=== PATIENT | male | born 1960 | race Asian ===

== ENCOUNTER 2016-05-26 13:01 | Emergency (ER) | payer BC ==
[2016-05-26] MEDS ORDERED: NS 1,000 ML IV ONE (13:48)
[2016-05-26 14:09] LABS: % IMMATURE GRANULYOCYTES 0.4 % (0.0-1.1); ABSOLUTE IMMATURE GRANULOCYTES 0.03 10^3/uL (0.00-0.10); ADD DIFF? NO; ADD MORPH? NO; ADD SCAN? NO; ATYPICAL LYMPHOCYTE FLAG 10 (0-99); FRAGMENT RBC FLAG 0 (0-99); HEMATOCRIT 39.9 % (40.0-51.0); HEMOGLOBIN 14.4 g/dL (13.7-17.5); LEFT SHIFT FLG 0 (0-99); LIPEMIA HEMOLYSIS FLAG 90 (0-99); MEAN CELL HEMOGLOBIN 30.7 pg (27.9-34.1); MEAN CELL HEMOGLOBIN CONCENTR. 36.1 g/dL (32.4-36.7); MEAN CELL VOLUME 85.1 fL (81.5-99.8); MEAN PLATELET VOLUME 8.9 fL (8.7-11.7); PLATELET CLUMPS FLAG 40 (0-99); PLATELET COUNT 254 10^3/uL (150-400); RED BLOOD CELL COUNT 4.69 10^6/uL (4.40-6.38); RED CELL DISTRIBUTION WIDTH 12.7 % (11.5-15.2)
[2016-05-26] MEDS ORDERED: OSELTAMIVIR PHOSPHATE 75 MG CAP PO ONE ×2 (14:09→14:16)
[2016-05-26] MEDS ORDERED: ACETAMINOPHEN 325 MG TAB PO ONE (14:16)
--- NOTE | 2016-05-26 14:24 | EDPHY ---
H & P Time Seen by Provider: 05/26/16 13:46 HPI/ROS: HPI Cough, fever, body aches. 55-year-old male by private vehicle with his . This patient reports he has a history of a pancreatic tumor. He states that it is not pancreatic cancer but he states that he is to have surgery to have it removed this Thursday. He reports yesterday he started feeling chilled with body aches. He developed fever and cough which she describes as dry/nonproductive last night. The symptoms have now continued through today. He was vaccinated for influenza. ROS: Constitutional: As above Eyes: No discharge. No changes in vision. ENT: He has had a mild sore throat. No nasal congestion or rhinorrhea. Respiratory: As above. No shortness of breath. Cardiac: No chest pain, no palpitations. Gastrointestinal: No abdominal pain, no vomiting, no diarrhea. Genitourinary: No hematuria. No dysuria or increased frequency with urination. Musculoskeletal: No back pain. No neck pain. As above. Skin: No rashes. Neurological: No headache. No focal weakness or altered sensation. Past medical history: As above. Social history: Nonsmoker. Here with his . Physical Exam: General Appearance: Alert, no distress. Moderately obese. This patient is responding to questions appropriately and in full sentences. This patient appears well-hydrated and well-nourished. Eyes: Pupils equal and round no pallor or injection. No lid edema, erythema or injection. ENT, Mouth: Mucous membranes are moist. The pharyngeal tissues are unremarkable. No edema or swelling. No asymmetry suggestive of abscess. Mild pharyngeal erythema. No exudates. Respiratory: There are no retractions, lungs are clear to auscultation with good air movement bilaterally. Cardiovascular: Regular rate and rhythm. Borderline tachycardia. No murmur. Gastrointestinal: Abdomen is soft and nontender, no masses, bowel sounds normal. No focal tenderness at McBurney's point. No Boyd sign. Neurological: Motor sensory function is grossly intact. Cranial nerves are normal. Gait is normal. Skin: Warm and dry, no rashes. Musculoskeletal: Neck is supple and nontender. Extremities are symmetrical. All joints range without pain or impingement. Psychiatric: No agitation. No depression. Database: Rapid influenza-positive influenza a. EKG: Imaging: Chest x-ray PA and lateral; the cardiac mediastinal silhouette is unremarkable. No evidence of infiltrate or pneumothorax. Viral pneumonitis versus bronchitis and basilar atelectasis. No other acute cardiopulmonary disease process noted. Interpreted by me. Procedures: Emergency department course: IV placed. He was placed on a cardiac surgeon. He was started on IV normal saline with 1 L to be given over the next hour. He was given 1 g of oral Tylenol. After diagnosis of influenza a. He was given 75 mg of oral Tamiflu. 2:50 p.m., patient re-evaluated. Blood pressure is 139/67. classroom monitor shows a narrow complex sinus rhythm with ventricular rate of 87. Pulse oximetry is 97%. Patient's 1st venous lactate was 1.6. He has responded well to IV fluids and antipyretics. Although he met SIRS criteria initially I do not feel he is septic. 2:55 p.m. discussed admission with the patient. He states that he is feeling better and declines at this time. He does feel comfortable going home with his . I feel this is reasonable. They live near the hospital and can easily return to Urgent Care or the emergency department at [facility]. Return to emergency department/urgent care precautions were thoroughly reviewed with him. Follow-up was discussed. All of his questions were answered. He was discharged from the emergency department in good condition. Differential Diagnosis: The differential diagnosis on this patient includes but is not limited to influenza. Bacterial pneumonia, other serious bacterial infection unlikely. This represents a partial list of diagnoses considered. These considerations are based on history, physical exam, past history, reassessment and diagnostic testing. Smoking Status: Never smoked Constitutional: Initial Vital Signs Temperature (C) 39.4 C H 05/26/16 13:31 Heart Rate 100 05/26/16 13:31 Respiratory Rate 24 H 05/26/16 13:31 Blood Pressure 153/81 H 05/26/16 13:31 O2 Sat (%) 88 L 05/26/16 13:31 O2 Delivery Mode Room Air Allergies/Adverse Reactions: No Known Allergies Allergy (Unverified 05/26/16 13:37) Home Medications: Medication Instructions Recorded Atorvastatin Calcium 05/26/16 Januvia 100 MG (*) 05/26/16 Losartan-Hctz 100-25 mg Tab 05/26/16 Metformin HCl 05/26/16 Metoprolol Succinate Xr 05/26/16 Oseltamivir Phosphate [Tamiflu 75 75 mg PO BID #10 cap 05/26/16 mg (RX)] Medical Decision Making - Data Points Laboratory Results: Laboratory Results 05/26/16 13:58 05/26/16 13:58 Medications Given: Discontinued Medications Acetaminophen (Tylenol) 1,000 mg PO EDNOW ONE Stop: 05/26/16 14:17 Last Admin: 05/26/16 14:21 Dose: 1,000 mg Sodium Chloride (Ns) 1,000 mls @ 0 mls/hr IV ONCE ONE PRN Reason: Wide Open Stop: 05/26/16 13:49 Last Admin: 05/26/16 14:07 Dose: 1,000 mls Oseltamivir Phosphate (Tamiflu) 75 mg PO EDNOW ONE Stop: 05/26/16 14:10 Last Admin: 05/26/16 14:18 Dose: Not Given Oseltamivir Phosphate (Tamiflu) 75 mg PO EDNOW ONE Stop: 05/26/16 14:17 Last Admin: 05/26/16 14:21 Dose: 75 mg Departure - Departure Disposition: Home, Routine, Self-Care Clinical Impression: Influenza A, Dehydration Condition: Good Instructions: Influenza (ED) Additional Instructions: Read and follow provided instructions. Follow-up with your primary care physician tomorrow without fail for re- evaluation. It is very important you keep yourself well hydrated. Drink plenty of fluids. The best fluid to drink is Gatorade mixed with water in a 1-1 dilution. Take medication as prescribed through entire course of treatment. This is Tamiflu. It is an antiviral to treat your influenza. Treat fever with Tylenol. You can take 650 mg to 1 g every 6-8 hours for the next 2 days. Return to the emergency department for worsening cough, difficulty breathing, high fever, vomiting or other serious concerns. Referrals: OUT OF STATE,. [Primary Care Provider] - As per Instructions Prescriptions: Oseltamivir Phosphate [Tamiflu 75 mg (RX)] 75 mg PO BID #10 cap
[2016-05-26 14:25] LABS: APTT 28.9 SEC (23.0-38.0); INR 0.96 (0.83-1.16); PROTIME(PATIENT) 12.6 SEC (12.0-15.0)
[2016-05-26 14:26] LABS: ALANINE AMINOTRANSFERASE 39 IU/L (21-72); ALBUMIN 3.6 g/dL (3.5-5.0); ALKALINE PHOSPHATASE 60 IU/L (38-126); ANION GAP 12 mEq/L (8-16); ASPARTATE AMINOTRANSFERASE 22 IU/L (17-59); BILIRUBIN,TOTAL 0.6 mg/dL (0.1-1.4); BILIRUBIN-CONJUGATED 0.3 mg/dL (0.0-0.5); BILIRUBIN-UNCONJUGATED 0.3 mg/dL (0.0-1.1); CALCIUM 9.4 mg/dL (8.5-10.4); CARBON DIOXIDE 26 mEq/l (22-31); CHLORIDE 98 mEq/L (97-110); CREATININE 0.6 mg/dL (0.7-1.3); GLOMERULAR FILTRATION RATE > 60; GLUCOSE 149 mg/dL (70-100); POTASSIUM 3.2 mEq/L (3.5-5.2); SODIUM 136 mEq/L (134-144)
--- NOTE | 2016-05-26 14:38 | DX ---
PA and Lateral Chest Indication: Flulike symptoms. Patient meets sepsis criteria. Comparison: None Findings: The lungs are hypoventilated with bibasilar patchy opacities superimposed on diffuse peribr onchial thickening. No confluent airspace consolidation or effusion. Heart size within normal limit f or degree of inspiration. Benign diffuse idiopathic skeletal hyperostosis is present throughout the t horacic spine. An old mild compression deformity is present in the low thoracic spine. Impression: 1. Viral pneumonitis versus bronchitis with bibasilar atelectasis. 2. No pneumonia or effusion.
[2016-05-26 15:39] VITALS: BP 125/62; PULSE 78; RESP 18; TEMP 100; O2SAT 93
== END 2016-05-26 15:39 | disposition home or self-care (01) ==
LOC: CED 13:01
DX: J09.X2 Influenza due to identified novel influenza A virus with other respiratory manifestations (principal); Z85.07 Personal history of malignant neoplasm of pancreas
CPT/HCPCS: 71020-PO; 80048-PO; 80076-PO; 82247-PO; 83605-PO; 83690-PO; 85025-PO; 85610-PO; 85730-PO; 87400-PO; 96360-PO; G0463-PO

== ENCOUNTER → 2016-09-09 | Outpatient (CLI) | payer BC | LOC: CIMAGING 16:30 | PROVIDERS: ATTEND Internal Medicine | DX: R07.81 Pleurodynia (principal) | CPT/HCPCS: 71101-PO ==

== ENCOUNTER 2016-10-21 10:06 | Observation (INO) | payer BC ==
[2016-10-21] MEDS ORDERED: ASPIRIN 81 MG CHEWABLE TAB PO ONE (10:12)
--- NOTE | 2016-10-21 10:12 | CPEKG ---
Heart Rate: 50 RR Interval: 1200 P-R Interval: 160 QRSD Interval: 100 QT Interval: 424 QTC Interval: 387 P [place]: -6 QRS [place]: -14 T Wave [place]: 28 EKG Severity - NORMAL ECG - EKG Impression: SINUS RHYTHM Electronically Signed By: Harshad Quintero 21-Oct-2016 14:29:25
--- NOTE | 2016-10-21 10:25 | EDPHY ---
H & P Stated Complaint: c/o substernal CP ~ 40 min ago- pain now 2/10 Time Seen by Provider: 10/21/16 10:09 HPI/ROS: Chief Complaint: Chest pain HPI: 55-year-old male with a history of hypertension, diabetes, hyperlipidemia and pancreatic cancer status post a Whipple procedure in May [facility] [address] [facility]. Patient was in a meeting at work this morning when at 9: 30 a.m. he began having substernal chest pain, felt like reflux type pain. It radiated to his back. It was at worst a 6/10. Patient presented to his physician's office up stairs for evaluation they directed him down here to the emergency department. Pain is now down to a 1/10. Does not have a history of the same pain in the past. Is unlike his pancreatic or postoperative pain. Patient does state that he recently had some blood work done and was noted to have an abnormality is his liver function tests and is scheduled for CT scan of his abdomen and pelvis tomorrow. No fevers or chills. Did not have any associated shortness of breath. Pain is not pleuritic. States that he did break out into a sweat when the pain began. Some nausea, no vomiting. ROS: 10 point Review of Systems is negative except as noted in the HPI. PMH: Pancreatic cancer status post Whipple procedure May 2016 Hypertension Hyperlipidemia Diabetes Social History: No smoking, no alcohol, no recreational drug use Family History: non-contributory Physical Exam: Gen: Awake, Alert, No Distress HEENT: Nose: no rhinorrhea Eyes: PERRLA, EOMI Mouth: Moist mucosa Neck: Supple, no JVD Chest: nontender, lungs clear to auscultation Heart: S1, S2 normal, no murmur Abd: Soft, non-tender, no guarding Back: no CVA tenderness, no midline tenderness Ext: no edema, non-tender Skin: no rash Neuro: CN II-XII intact, Sensation grossly intact, Strength 5/5 in bilateral upper and lower extremities - Medical/Surgical History Other PMH: PCP devi. SURG sinus. Pancreatic tumor - Social History Smoking Status: Never smoked Constitutional: Initial Vital Signs Temperature (C) 37.2 C 10/21/16 10:15 Heart Rate 52 L 10/21/16 10:15 Respiratory Rate 18 10/21/16 10:15 Blood Pressure 124/74 H 10/21/16 10:15 O2 Sat (%) 98 10/21/16 10:15 O2 Delivery Mode Room Air Allergies/Adverse Reactions: No Known Allergies Allergy (Unverified 05/26/16 13:37) Home Medications: Medication Instructions Recorded Atorvastatin Calcium 05/26/16 Januvia 100 MG (*) 05/26/16 Losartan-Hctz 100-25 mg Tab 05/26/16 Metformin HCl 05/26/16 Metoprolol Succinate Xr 05/26/16 Medical Decision Making - Diagnostics EKG Interpretation: ECG time 10:10 a.m., sinus rhythm with a rate of 50, normal axis, normal intervals, no acute ST or T-wave changes. Impression: Normal ECG. ED Course/Re-evaluation: 55-year-old male with multiple risk factors for coronary disease and recent surgery for pancreatic cyst cancer presenting with substernal chest pressure radiating to his back which began about 45 minutes prior to arrival here. On arrival his pain is nearly gone. He has a normal ECG. He recently had laboratory testing showed abnormalities liver function testing. He is scheduled for a CT scan tomorrow. Will check blood work including D-dimer now. Continue to monitor his pain. He has been given 4 baby aspirin orally. 1100 patient's ECG, chest x-ray, troponin, and D-dimer normal. Interestingly also are his LFTs. Patient is will need an admission for cardiac rule out given his multiple risk factors. I have spoken with Sherri Orozco, hospitalist. Patient will be transferred to [facility] under Dr. Lundberg. - Data Points Laboratory Results: Laboratory Results 10/21/16 10:18 10/21/16 10:18 10/21/16 10/21/16 10/21/16 10:18 10:18 10:18 WBC 10.18 10^3/uL H 10^3/uL (3.80-9.50) RBC 4.54 10^6/uL 10^6/uL (4.40-6.38) Hgb 12.9 g/dL L g/dL (13.7-17.5) Hct 39.1 % L % (40.0-51.0) MCV 86.1 fL fL (81.5-99.8) MCH 28.4 pg pg (27.9-34.1) MCHC 33.0 g/dL g/dL (32.4-36.7) RDW 13.6 % % (11.5-15.2) Plt Count 276 10^3/uL 10^3/uL (150-400) MPV 8.9 fL fL (8.7-11.7) Neut % (Auto) 57.9 % % (39.3-74.2) Lymph % (Auto) 32.1 % % (15.0-45.0) [place] % (Auto) 7.9 % % (4.5-13.0) Eos % (Auto) 1.2 % % (0.6-7.6) Baso % (Auto) 0.6 % % (0.3-1.7) Nucleat RBC Rel Count 0.0 % % (0.0-0.2) Absolute Neuts (auto) 5.90 10^3/uL 10^3/uL (1.70-6.50) Absolute Lymphs (auto) 3.27 10^3/uL H 10^3/uL (1.00-3.00) Absolute Monos (auto) 0.80 10^3/uL 10^3/uL (0.30-0.80) Absolute Eos (auto) 0.12 10^3/uL 10^3/uL (0.03-0.40) Absolute Basos (auto) 0.06 10^3/uL 10^3/uL (0.02-0.10) Absolute Nucleated RBC 0.00 10^3/uL 10^3/uL (0-0.01) Immature Gran % 0.3 % % (0.0-1.1) Immature Gran # 0.03 10^3/uL 10^3/uL (0.00-0.10) D-Dimer 0.37 ug/mLFEU ug/mLFEU (0.00-0.50) Sodium 136 mEq/L mEq/L (134-144) Potassium 4.1 mEq/L mEq/L (3.5-5.2) Chloride 97 mEq/L mEq/L (97-110) Carbon Dioxide 27 mEq/l mEq/l (22-31) Anion Gap 12 mEq/L mEq/L (8-16) BUN 10 mg/dL mg/dL (7-23) Creatinine 0.7 mg/dL mg/dL (0.7-1.3) Estimated GFR > 60 Glucose 93 mg/dL mg/dL (70-100) Calcium 9.1 mg/dL mg/dL (8.5-10.4) Total Bilirubin 0.6 mg/dL mg/dL (0.1-1.4) Conjugated Bilirubin 0.3 mg/dL mg/dL (0.0-0.5) Unconjugated Bilirubin 0.3 mg/dL mg/dL (0.0-1.1) AST 54 IU/L IU/L (17-59) ALT 49 IU/L IU/L (21-72) Alkaline Phosphatase 72 IU/L IU/L (38-126) Troponin I < 0.012 ng/mL ng/mL (0-0.034) Total Protein 7.5 g/dL g/dL (6.3-8.2) Albumin 3.9 g/dL g/dL (3.5-5.0) Lipase 108.0 IU/L IU/L (23-300) Medications Given: Discontinued Medications Aspirin (Aspirin) 324 mg PO EDNOW ONE Stop: 10/21/16 10:13 Last Admin: 10/21/16 10:13 Dose: 324 mg Departure - Departure Disposition: [facility] Inpatient Acute Clinical Impression: Chest pain Condition: Fair Referrals: Aziza Hunter MD [Primary Care Provider] - As per Instructions
[2016-10-21 10:31] LABS: % IMMATURE GRANULYOCYTES 0.3 % (0.0-1.1); ABSOLUTE IMMATURE GRANULOCYTES 0.03 10^3/uL (0.00-0.10); ADD DIFF? NO; ADD MORPH? NO; ADD SCAN? NO; ATYPICAL LYMPHOCYTE FLAG 20 (0-99); FRAGMENT RBC FLAG 0 (0-99); HEMATOCRIT 39.1 % (40.0-51.0); HEMOGLOBIN 12.9 g/dL (13.7-17.5); LEFT SHIFT FLG 0 (0-99); LIPEMIA HEMOLYSIS FLAG 80 (0-99); MEAN CELL HEMOGLOBIN 28.4 pg (27.9-34.1); MEAN CELL VOLUME 86.1 fL (81.5-99.8); MEAN PLATELET VOLUME 8.9 fL (8.7-11.7); PLATELET CLUMPS FLAG 10 (0-99); PLATELET COUNT 276 10^3/uL (150-400); RED BLOOD CELL COUNT 4.54 10^6/uL (4.40-6.38); RED CELL DISTRIBUTION WIDTH 13.6 % (11.5-15.2)
[2016-10-21 10:47] LABS: ALANINE AMINOTRANSFERASE 49 IU/L (21-72); ALBUMIN 3.9 g/dL (3.5-5.0); ALKALINE PHOSPHATASE 72 IU/L (38-126); ANION GAP 12 mEq/L (8-16); ASPARTATE AMINOTRANSFERASE 54 IU/L (17-59); BILIRUBIN,TOTAL 0.6 mg/dL (0.1-1.4); BILIRUBIN-CONJUGATED 0.3 mg/dL (0.0-0.5); BILIRUBIN-UNCONJUGATED 0.3 mg/dL (0.0-1.1); CALCIUM 9.1 mg/dL (8.5-10.4); CARBON DIOXIDE 27 mEq/l (22-31); CHLORIDE 97 mEq/L (97-110); CREATININE 0.7 mg/dL (0.7-1.3); GLOMERULAR FILTRATION RATE > 60; GLUCOSE 93 mg/dL (70-100); POTASSIUM 4.1 mEq/L (3.5-5.2); SODIUM 136 mEq/L (134-144); TOTAL PROTEIN 7.5 g/dL (6.3-8.2)
[2016-10-21] MEDS ORDERED: IOPAMIDOL (ISOVUE-300) 100 ML BTL ONE (10:52)
[2016-10-21 10:54] LABS: TROPONIN I < 0.012 ng/mL (0-0.034)
[2016-10-21 13:09] VITALS: O2SAT 93
[2016-10-21 13:50] VITALS: PULSE 55
[2016-10-21] MEDS ORDERED: PROMETHAZINE HCL 25 MG/ML INJ IVP PRN (14:10)
[2016-10-21 15:12] VITALS: BP 104/63; RESP 16; TEMP 97.8
[2016-10-21] MEDS ORDERED: ONDANSETRON 4 MG/2 ML VIAL IVP PRN (15:34)
[2016-10-21] MEDS ORDERED: ONDANSETRON DISINTEGRATING 4 MG TAB PO PRN (15:34)
[2016-10-21] MEDS ORDERED: ACETAMINOPHEN 325 MG TAB PO PRN (15:34)
[2016-10-21] MEDS ORDERED: CREON 24 CAP PO SCH (16:00)
--- NOTE | 2016-10-21 17:02 | CPR ---
[f rep st] NONINVASIVE CARDIAC PROCEDURE REPORT DATE OF PROCEDURE: 10/21/2016 PROCEDURE PERFORMED: Treadmill stress test. REASON FOR TEST: Chest pain. FINDINGS: Resting EKG shows a sinus bradycardia with a rate of 57. There are no ischemic changes. No arrhythmias. Resting blood pressure 118/78, resting heart rate 57. He is asymptomatic. STRESS PORTION: He was exercised according to the Fili protocol for a total of 6 minutes and 43 se conds. Peak MET level 7.7. Peak blood pressure 184/80. Peak heart rate 132. This was of 80% maxi mal heart rate. He had no ischemic changes. An occasional PVC was noted with exercise. RECOVERY: He spontaneously recovered. Both blood pressure and pulse returned to normal. Recovery blood pressure 130/80, recovery heart rate 86 and regular. No ischemic changes seen in recovery. N o arrhythmias seen. At this time, he currently is stable to return to his room. /[id number]/MODL
--- NOTE | 2016-10-21 19:03 | GDS ---
[f rep st] DISCHARGE SUMMARY DISCHARGE DIAGNOSES: 1. Atypical chest pain. 2. Diabetes. 3. Hypertension. 4. History of pancreatic cancer, status post Whipple. HISTORY: This 55-year-old male presented with 1 hour's worth of burning-type chest pain radiating t o the back. HOSPITAL COURSE: The patient had cardiac enzymes negative x2. He then underwent stress testing. H e underwent graded stress EKG, which did not show any abnormalities, although his heart rate was not able to get up to maximum. Considering that his pain is atypical, we will defer any further imagin g unless he gets symptoms again. He does have some calcification in the RCA on CAT scanning. He wi ll, however, be discharged home. We will add aspirin to his regimen. /[id number]/MODL
[2016-10-21] MEDS ORDERED: METOPROLOL TARTRATE 25 MG TAB PO SCH (21:00)
--- NOTE | 2016-10-21 21:53 | GHP ---
[f rep st] HISTORY AND PHYSICAL DATE OF ADMISSION: 10/21/2016 CHIEF COMPLAINT: Chest pain. HISTORY OF PRESENT ILLNESS: A 55-year-old male with a history of diabetes, hypertension, hyperlipid emia, and recent pancreatic cancer, status post Whipple. He presents with 1 hour's worth of chest p ressure, with some associated warmth. No shortness of breath. Not exertional in quality. It did r adiate into his back. He has not had pain like this before. No nausea, shortness of breath. REVIEW OF SYSTEMS: A 10-point review of systems was obtained, other than stated above is negative. PAST MEDICAL HISTORY: 1. History of pancreatic cancer, status post Whipple in May of this year. 2. Hypertension. 3. Hyperlipidemia. 4. Diabetes. MEDICATIONS: Reviewed. SOCIAL HISTORY: No smoking or alcohol. FAMILY HISTORY: No history of coronary disease. PHYSICAL EXAM: VITAL SIGNS: Afebrile. Blood pressure is 104/63, heart rate 55, oxygen saturation 93% on room air. GENERAL: The patient is well developed in no apparent distress. HEENT: Nonicter ic sclerae. Extraocular movements intact. Moist mucous membranes. NECK: Supple. No thyromegaly. LUNGS: Good effort. Clear to auscultation bilaterally. CARDIOVASCULAR: Regular rate and rhythm . No murmurs, rubs, or gallops. ABDOMEN: Positive bowel sounds. Soft, nontender, nondistended. No hepatosplenomegaly. EXTREMITIES: No clubbing, cyanosis, or edema. SKIN: Without rash. Warm, dry, and intact. NEUROLOGIC: Alert and oriented x3. Moving all 4 extremities equally. PSYCHIATRI C: Normal affect. LABS: White blood cell count slightly elevated at 10. D-dimer is negative. Chemistry, including l iver function tests, are normal. Troponins are negative x2. CT scan of the abdomen and pelvis shows essentially status post Whipple, but also does show calcific ation in the right coronary artery. EKG, personally reviewed and interpreted, shows normal sinus rhythm, with no ischemic changes. ASSESSMENT: This is a 55-year-old male presenting with atypical type chest pain, although he does h ave significant risk factors. PLAN: Chest pain. It has resolved. It did radiate to the back, and was felt more like warmth. I suspect this probably is GERD. He has had two negative troponins. He will be going for stress test ing now. If this is negative, we will let him go home. /[id number]/MODL
[2016-10-22] MEDS ORDERED: PANTOPRAZOLE SODIUM 40 MG TAB PO SCH (09:00)
[2016-10-22] MEDS ORDERED: NON-FORMULARY NEW DRUG (Losartan/Hydrochlorothiazide [Hyzaar 100-12.5 Tablet] 1 EACH) PO SCH (09:00)
[2016-10-22] MEDS ORDERED: LOSARTAN POTASSIUM 50 MG TAB PO SCH (09:00)
[2016-10-22] MEDS ORDERED: NON-FORMULARY NEW DRUG (Esomeprazole Mag Trihydrate [Nexium] 40 MG) PO SCH (09:00)
[2016-10-22] MEDS ORDERED: ATORVASTATIN CALCIUM 20 MG TAB PO SCH (09:00)
[2016-10-22] MEDS ORDERED: HYDROCHLOROTHIAZIDE 12.5 MG CAP PO SCH (09:00)
== END 2016-10-21 16:45 | disposition home or self-care (01) ==
LOC: CED 10:06 → CEDHOLD 11:02 → F2W 13:39
PROVIDERS: ADMIT Internal Medicine; ATTEND Internal Medicine
DX: R07.9 Chest pain, unspecified (principal); E11.9 Type 2 diabetes mellitus without complications; I10 Essential (primary) hypertension; E78.5 Hyperlipidemia, unspecified; Z85.07 Personal history of malignant neoplasm of pancreas
CPT/HCPCS: 71020; 74177; 93005; 93017; G0378; 80048-PO; 80076-PO; 83690-PO; 84484-PO; 85025-PO; 85378-PO; J2550; Q9967

== ENCOUNTER 2016-11-19 08:38 | Inpatient (IN) | payer BC ==
--- NOTE | 2016-11-19 08:55 | EDPHY ---
H & P Time Seen by Provider: 11/19/16 08:53 HPI/ROS: CHIEF COMPLAINT: Abdominal pain and fever HISTORY OF PRESENT ILLNESS: History from patient as well as from his planning associate Dr. Davis called before his arrival. Patient had Whipple procedure on June 18 of this year in [place] for pancreatic mass. Postoperatively he had another stay in the hospital for issues related to the surgery. He has been having intermittent abdominal pain since then including last week on Thursday, again on Thursday, and then again yesterday. He saw his planning associate yesterday was sent into the emergency department today because of recurrent abdominal pain, fever to 101.5 yesterday and an elevated alkaline phosphatase. Patient currently has minimal abdominal pain. When he has it is epigastric and radiates lower abdomen and also up into his chest. REVIEW OF SYSTEMS: Eye: no change in vision ENT: no sore throat Cardiac: no chest pain or syncope Pulmonary: no cough or SOB Abdomen: HPI, no vomiting or diarrhea Musculoskeletal: no back pain Skin: no rash Neuro: no headache Constitutional: HPI : no urinary symptoms A comprehensive 10 point review of systems is otherwise negative aside from elements mentioned in the history of present illness. PAST MEDICAL HISTORY: As in HPI, also and admission 1 month ago for chest pain. Hypertension, diabetes. Hyperlipidemia, vertigo. Social history: Originally from [place], no alcohol General Appearance: Alert and conversant, cooperative. Eyes: No scleral icterus. ENT, Mouth: Normal mucous membranes. Respiratory: Normal respiratory effort, breath sounds equal, lungs are clear to auscultation. Cardiovascular: Regular rate and rhythm. Gastrointestinal: Abdomen is soft and non tender. Surgical incision well healed, no rebound or guarding. Neurological: Alert and oriented x3. Normally conversant. Face symmetric, normal movement and sensation in all extremities. Skin: Warm and dry, no rashes. Musculoskeletal: No peripheral edema and no joint swelling. Psychiatric: Not agitated. Emergency Department course/MDM: Per Dr. Davis his planning associate plan for admission, sepsis screening, IV antibiotics, and MRCP. Does not have SIRS criteria in the emergency department. Afebrile in emergency department, elevated white blood cell count, but not tachycardic or tachypneic. Normal saline 1 L IV, Invanz 1 g IV. Concern for the possibility of early cholangitis. Abdominal pain with elevated liver function tests and alkaline phosphatase with subjective fevers. Smoking Status: Never smoked Constitutional: Initial Vital Signs Temperature (C) 36.8 C 11/19/16 08:43 Heart Rate 59 L 11/19/16 08:43 Respiratory Rate 17 11/19/16 08:43 Blood Pressure 108/71 11/19/16 08:43 O2 Sat (%) 94 11/19/16 08:43 O2 Delivery Mode Room Air Allergies/Adverse Reactions: No Known Allergies Allergy (Verified 11/19/16 08:42) Home Medications: Medication Instructions Recorded Acetaminophen [Tylenol 325mg (*)] 1 - 3 tab PO Q6 PRN 10/21/16 Aspirin EC [Aspirin EC 81 mg (*)] 81 mg PO DAILY #1 tab 10/21/16 Atorvastatin Calcium [Lipitor 20 20 mg PO HS 10/21/16 mg (*)] Esomeprazole Mag Trihydrate 40 mg PO BID 10/21/16 [Nexium] Ibuprofen [Advil] 200 mg PO BID PRN 10/21/16 Lipase/Protease/Amylase [Creon 24 1 cap PO TID 10/21/16 (*)] Losartan/Hydrochlorothiazide 1 each PO HS 10/21/16 [Hyzaar 100-12.5 Tablet] Metformin HCl [Metformin 1000 mg] 1,000 mg PO BID 10/21/16 Metoprolol Tartrate [Lopressor 25 25 mg PO BID 10/21/16 mg (*)] sitaGLIPtin PHOSPHATE [Januvia 100 100 mg PO HS 10/21/16 MG (*)] Cholecalciferol Vit D3 [Vitamin D3 2,000 units PO DAILY 11/19/16 2000 units tab (OTC)] Dexlansoprazole [Dexilant] 60 mg PO DAILY 11/19/16 Multivitamins [Multivitamin (*)] 1 each PO HS 11/19/16 Medical Decision Making Consult/Admit Bed Type: [facility] for Dr. Jones 927 - Data Points Laboratory Results: Laboratory Results 11/19/16 08:55 11/19/16 08:55 11/19/16 11/19/16 11/19/16 08:55 08:55 08:55 WBC 12.61 10^3/uL H 10^3/uL (3.80-9.50) RBC 4.40 10^6/uL 10^6/uL (4.40-6.38) Hgb 12.8 g/dL L g/dL (13.7-17.5) Hct 37.9 % L % (40.0-51.0) MCV 86.1 fL fL (81.5-99.8) MCH 29.1 pg pg (27.9-34.1) MCHC 33.8 g/dL g/dL (32.4-36.7) RDW 14.2 % % (11.5-15.2) Plt Count 245 10^3/uL 10^3/uL (150-400) MPV 9.0 fL fL (8.7-11.7) Neut % (Auto) 71.4 % % (39.3-74.2) Lymph % (Auto) 17.6 % % (15.0-45.0) [place] % (Auto) 8.7 % % (4.5-13.0) Eos % (Auto) 1.3 % % (0.6-7.6) Baso % (Auto) 0.5 % % (0.3-1.7) Nucleat RBC Rel Count 0.0 % % (0.0-0.2) Absolute Neuts (auto) 9.01 10^3/uL H 10^3/uL (1.70-6.50) Absolute Lymphs (auto) 2.22 10^3/uL 10^3/uL (1.00-3.00) Absolute Monos (auto) 1.10 10^3/uL H 10^3/uL (0.30-0.80) Absolute Eos (auto) 0.16 10^3/uL 10^3/uL (0.03-0.40) Absolute Basos (auto) 0.06 10^3/uL 10^3/uL (0.02-0.10) Absolute Nucleated RBC 0.00 10^3/uL 10^3/uL (0-0.01) Immature Gran % 0.5 % % (0.0-1.1) Immature Gran # 0.06 10^3/uL 10^3/uL (0.00-0.10) PT 13.0 SEC SEC (12.0-15.0) INR 0.99 (0.83-1.16) APTT 29.7 SEC SEC (23.0-38.0) VBG Lactic Acid Sodium 143 mEq/L mEq/L (134-144) Potassium 3.7 mEq/L mEq/L (3.5-5.2) Chloride 104 mEq/L mEq/L (97-110) Carbon Dioxide 25 mEq/l mEq/l (22-31) Anion Gap 14 mEq/L mEq/L (8-16) BUN 8 mg/dL mg/dL (7-23) Creatinine 0.8 mg/dL mg/dL (0.7-1.3) Estimated GFR > 60 Glucose 108 mg/dL H mg/dL (70-100) Calcium 9.7 mg/dL mg/dL (8.5-10.4) Total Bilirubin 1.9 mg/dL H mg/dL (0.1-1.4) Conjugated Bilirubin 0.5 mg/dL mg/dL (0.0-0.5) Unconjugated Bilirubin 1.4 mg/dL H mg/dL (0.0-1.1) AST 276 IU/L H IU/L (17-59) ALT 377 IU/L H IU/L (21-72) Alkaline Phosphatase 232 IU/L H IU/L (38-126) Total Protein 7.4 g/dL g/dL (6.3-8.2) Albumin 3.9 g/dL g/dL (3.5-5.0) Lipase 68.0 IU/L IU/L (23-300) 11/19/16 08:55 WBC RBC Hgb Hct MCV MCH MCHC RDW Plt Count MPV Neut % (Auto) Lymph % (Auto) [place] % (Auto) Eos % (Auto) Baso % (Auto) Nucleat RBC Rel Count Absolute Neuts (auto) Absolute Lymphs (auto) Absolute Monos (auto) Absolute Eos (auto) Absolute Basos (auto) Absolute Nucleated RBC Immature Gran % Immature Gran # PT INR APTT VBG Lactic Acid 1.2 mmol/L mmol/L (0.7-2.1) Sodium Potassium Chloride Carbon Dioxide Anion Gap BUN Creatinine Estimated GFR Glucose Calcium Total Bilirubin Conjugated Bilirubin Unconjugated Bilirubin AST ALT Alkaline Phosphatase Total Protein Albumin Lipase Medications Given: Discontinued Medications Sodium Chloride (Ns) 1,000 mls @ 0 mls/hr IV EDNOW ONE; Wide Open PRN Reason: Protocol Stop: 11/19/16 09:33 Last Admin: 11/19/16 09:49 Dose: 1,000 mls Ertapenem 1 gm/ Sodium (Chloride) 100 mls @ 200 mls/hr IV EDNOW ONE PRN Reason: Protocol Stop: 11/19/16 10:01 Last Admin: 11/19/16 10:15 Dose: 100 mls Departure - Departure Disposition: [facility] Inpatient Acute Clinical Impression: Abdominal pain Condition: Good
[2016-11-19 09:17] LABS: % IMMATURE GRANULYOCYTES 0.5 % (0.0-1.1); ABSOLUTE IMMATURE GRANULOCYTES 0.06 10^3/uL (0.00-0.10); ADD DIFF? NO; ADD MORPH? NO; ADD SCAN? NO; ATYPICAL LYMPHOCYTE FLAG 0 (0-99); FRAGMENT RBC FLAG 0 (0-99); HEMATOCRIT 37.9 % (40.0-51.0); HEMOGLOBIN 12.8 g/dL (13.7-17.5); LEFT SHIFT FLG 10 (0-99); LIPEMIA HEMOLYSIS FLAG 90 (0-99); MEAN CELL HEMOGLOBIN 29.1 pg (27.9-34.1); MEAN CELL HEMOGLOBIN CONCENTR. 33.8 g/dL (32.4-36.7); MEAN CELL VOLUME 86.1 fL (81.5-99.8); PLATELET CLUMPS FLAG 20 (0-99); PLATELET COUNT 245 10^3/uL (150-400); RED CELL DISTRIBUTION WIDTH 14.2 % (11.5-15.2)
[2016-11-19 09:28] LABS: ANION GAP 14 mEq/L (8-16); BILIRUBIN,TOTAL 1.9 mg/dL (0.1-1.4); CALCIUM 9.7 mg/dL (8.5-10.4); CARBON DIOXIDE 25 mEq/l (22-31); CHLORIDE 104 mEq/L (97-110); CREATININE 0.8 mg/dL (0.7-1.3); GLOMERULAR FILTRATION RATE > 60; GLUCOSE 108 mg/dL (70-100); POTASSIUM 3.7 mEq/L (3.5-5.2); SODIUM 143 mEq/L (134-144)
[2016-11-19 09:32] LABS: INR 0.99 (0.83-1.16)
[2016-11-19] MEDS ORDERED: ERTAPENEM 1 GM in NS 100 ML IV ONE (09:32)
[2016-11-19] MEDS ORDERED: NS 1,000 ML IV ONE (09:32)
[2016-11-19 09:33] LABS: APTT 29.7 SEC (23.0-38.0)
[2016-11-19 09:55] LABS: ALANINE AMINOTRANSFERASE 377 IU/L (21-72); ALBUMIN 3.9 g/dL (3.5-5.0); ALKALINE PHOSPHATASE 232 IU/L (38-126); ASPARTATE AMINOTRANSFERASE 276 IU/L (17-59); BILIRUBIN-CONJUGATED 0.5 mg/dL (0.0-0.5); BILIRUBIN-UNCONJUGATED 1.4 mg/dL (0.0-1.1); TOTAL PROTEIN 7.4 g/dL (6.3-8.2)
[2016-11-19 10:35] VITALS: RESP 16
[2016-11-19] MEDS ORDERED: ONDANSETRON 4 MG/2 ML VIAL IVP PRN (13:21)
[2016-11-19] MEDS ORDERED: ZOLPIDEM TARTRATE 5 MG TAB PO PRN (13:21)
[2016-11-19] MEDS ORDERED: ACETAMINOPHEN 325 MG TAB PO PRN (13:21)
--- NOTE | 2016-11-19 13:26 | PDGENHP ---
History and Physical History and Physical: HISTORY AND PHYSICAL CC:Fever and abdominal pain HISTORY: this patient who had a Whipple procedure done at the [facility] in May for pancreatic cancer has been having episodes of abdominal pain which is epigastric in location. The 1st episode was a month ago and he actually interpreted as chest pain and came here and had a rule out MN assessment with no cardiac findings. He had another episode a week later and now has had 3 episodes in the past week. The pain is crampy in nature and lasts for hours to a day or thereabouts. There is no nausea or vomiting. He has started having fever symptoms in last couple days and on arrival here to the hospital has fever in the ER. He has not had change in bowel function. There is no shortness of breath cough or chest discomfort at this time. He does get some ache in the central back. In between these episodes he is eating fine and actually is hungry now He is not really having pain today but he was seen by his visual c developer Dr. Davis after some pain yesterday and had blood test. Today he has fever and blood tests that are abnormal so he is sent here for further evaluation and treatment. ROS: A comprehensive 10 system review revealed no other significant findings PAST MEDICAL HISTORY: Pancreatic cancer status post Whipple procedure hypertension Hyperlipidemia Diabetes mellitus FAMILY MEDICAL HISTORY: no cancers SOCIAL HISTORY: no tobacco or alcohol use MEDICATIONS: The patients list has been reconciled by our clinical pharmacist in the EMR. I have reviewed the list and ordered appropriate medicines. 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 Will need imaging to get more information at this point. PLANS: -I reviewed the case with Dr. Migel Gibbons and Dr. Jose Daniel Foote of gastroenterology -Blood cultures were obtained in the ER will follow those -Ertapenem was started in the emergency room and this should give coverage for the the organisms involved if he does have cholangitis -IV hydration -MRCP has been ordered -Will keep NPO for now until we have the results of his MRI scan - further plans once we have imaging studies
[2016-11-19] MEDS ORDERED: NS 1,000 ML IV SCH (13:30)
[2016-11-19] MEDS: HYDROmorphONE/DILAUDID 1 MG/ML SYR IVP PRN ×3 (14:01→19:42)
[2016-11-19 15:58] VITALS: BP 121/65; PULSE 69; TEMP 98.8; O2SAT 92
[2016-11-19] MEDS ORDERED: metFORMIN HCL 500 MG TAB PO SCH (18:00)
--- NOTE | 2016-11-19 18:20 | PDDCSUM ---
Discharge Summary Discharge Summary: DISCHARGE DIAGNOSES: -Acute cholangitis with biliary obstruction -History of Whipple surgery with a Haja-en-Y CONSULTANTS: Dr. Jose Daniel Foote PROCEDURES: MRCP HOSPITAL COURSE SUMMARY: This patient presented with abdominal pain and fevers and was found to have acute cholangitis with biliary distention, in the setting of a previous Whipple surgery with Haja-en-Y. MRI confirmed our suspicions that this is likely acute cholangitis. We are with pending cultures and he has been started on antibiotics with Invanz. Dr. Jose Daniel Foote saw the patient in consultation and reviewed with Dr. Davis our endoscopic perioperative assistant. It was felt that we did not have anyone here with the proper experience for having a high chance of success of performing a set ERCP. Dr. Foote spoke with Dr. Kaur at the [facility] and Dr. Kaur felt like they would have a significantly better chance of a successful ERCP. It was elected to transfer the patient to the surgical service at the [facility] and transport has been arranged. He will be going there later this evening. The patient has remained in stable condition here with no significant changes in vital signs, no respiratory symptoms or findings, no signs of organ failure, no signs of sepsis. PENDING TEST RESULTS: None MEDICATION CHANGES: He is started on Invanz intravenous antibiotic which will continue upon transfer FOLLOW-UP PLAN: At this time he is transferred from this hospital to the [facility] and will be on the surgical service there and seen by Gastroenterology.
[2016-11-19] MEDS ORDERED: LOSARTAN POTASSIUM 50 MG TAB PO SCH (21:00)
[2016-11-19] MEDS ORDERED: PANTOPRAZOLE SODIUM 40 MG TAB PO SCH (21:00)
[2016-11-19] MEDS ORDERED: LOSARTAN/HCTZ 50/12.5 1 TAB PO SCH (21:00)
[2016-11-19] MEDS ORDERED: MULTIVITAMINS 1 EACH TAB PO SCH (21:00)
[2016-11-19] MEDS ORDERED: METOPROLOL TARTRATE 25 MG TAB PO SCH (21:00)
[2016-11-19] MEDS ORDERED: CREON 24 CAP PO SCH (22:00)
--- NOTE | 2016-11-20 03:49 | GCON ---
[f rep st] CONSULTATION DATE OF CONSULTATION: 11/19/2016 REFERRING PHYSICIAN: Mervin Jones MD CHIEF COMPLAINT: Abdominal pain and fever. Dear Dr. Jones: Thank you very kindly for asking me to evaluate Mr. Liang for abdominal pain. He is a pleasant 56-ye ar-old gentleman, who presents today with episodic epigastric and right flank pain that has been rad iating into his scapula, that has been present for at least 4-6 weeks. He has been having intermitt ent fevers, as high as 101.5, more recently, over the last few days. He was seen in the emergency r oom on October 21 for chest pain, and was admitted for a rule out myocardial infarction workup, which w as negative. 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 He had a complication of an upper GI bleed from the gastroduodenal artery in July requiring em bolization and coiling. His evaluation in September, when he was hospitalized, demonstrated a mild eleva tion in his AST and ALT, which then normalized when his pain resolved. Interestingly, as part of [facility] admission, his LFTs, including his bilirubin and alkaline phosphatase, are all substantially abno rmal, and worse than they were in early September. An abdomen and pelvis CT as well as MRI were performed . This demonstrates a dilated extrahepatic biliary anatomy to approximately 14 mm, with an absent g allbladder. There are coils and some decompression of the biliary limb which makes the very distal portion of the bile duct difficult to image. It does appear that the bile ducts in the intrahepatic segment are also somewhat dilated, but only mildly so. The pancreatic head is missing consistent w ith a Whipple procedure. The body and tail are atrophic. There is no evidence of abscess. The vas culature of the splenic vein, superior mesenteric vein, and main portal vein are patent, as well as the IVC. There is no ascites. There is no radiographic evidence of small or large bowel obstructio n. I am asked to assist with further evaluation and management. PAST MEDICAL HISTORY: Significant for: 1. A well-developed neuroendocrine tumor that was node negative and resected in May by a Whipp le procedure. 2. An upper GI bleed from the gastroduodenal artery that is believed to have complicated surgery an d was treated with Interventional Radiology embolization. 3. Diabetes. 4. Hypertension. 5. Hyperlipidemia. PAST SURGICAL HISTORY: The Whipple resection. MEDICATIONS: Tylenol, Lovenox, ertapenem, which was started today, Dilaudid for pain, Zofran, and A mbien. ALLERGIES: None known. SOCIAL HISTORY: The patient is . He is a [place] male, who was born in [facility]. His gran dparents were the first descendents from [place] to live in [facility] of his family. No tobacco, no a lcohol. No substance abuse. FAMILY HISTORY: Negative for pancreatic cancer or neuroendocrine disease. REVIEW OF SYSTEMS: Constitutional has been for fever, chills, general malaise. This has been going on intermittently for the last week or 2. His pain, however, has been present more for about 4-6 w eeks. HEENT: Denies headache or visual disturbances. No sore throat. No rhinorrhea. No ear pain . PULMONARY: No cough or shortness of breath. CARDIOVASCULAR: No palpitations, syncope, dyspnea with exertion. Denies orthopnea or severe chest pain. GASTROINTESTINAL: Denies heartburn, dysphag ia, nausea, or vomiting. He has been having epigastric and right upper quadrant pain that has been radiating into his scapula that has been severe at times, but is generally more moderate in discomfo rt. Does not seem meal-related. He is not in any current pain. He denies any melena, hematochezia , or change in his stool color. No diarrhea or constipation. RHEUMATOLOGIC: No joint pain or swel ling. DERMATOLOGIC: No pruritus, jaundice, or rash. NEUROLOGIC: Denies seizures, focal weakness, or paresthesias. PSYCHIATRIC: Negative for depression, anxiety, or insomnia. PHYSICAL EXAM: VITAL SIGNS: Blood pressure 121/65, heart rate is 69 and regular, respirations are 16, oxygenation is 92% on room air, T-max was 38.4 with a T current of 37.1 after antibiotic initiat ion. GENERAL: Healthy [place] male, in no acute distress. HEENT: Normocephalic, atraumatic. Scl erae are actually mildly icteric. No pallor, jaundice, or petechiae. Mucous membranes are dry. NE CK: Supple. No lymphadenopathy or jugular venous distention. PULMONARY: Clear to auscultation bi laterally. CARDIOVASCULAR: Regular rate and rhythm without murmur, rub, or gallop. GI: The abdom en is soft, nondistended. Normal bowel sounds. Previous surgical scars are well healed. I do not appreciate any organomegaly. There is no tenderness, rebound. No abdominal bruit. RHEUMATOLOGIC: No joint deformity or swelling. No palmar erythema. NEUROLOGIC: Alert, oriented, able to provide his own history. Normal speech. Normal gait. Nonfocal motor exam. Sensation is grossly intact t o light touch. DATA BASE: Includes the following: White blood count is 12.6, hematocrit 37.9, with an MCV of 86.1 , platelets are 245. INR is 0.9 with a PT of 13 and a PTT of 29.7. Sodium 143, potassium 3.7, chlo ride 104, bicarbonate 25, BUN 8, creatinine 0.8, anion gap is 14, glucose is 108, calcium 9.7. Tota l bilirubin 1.9, with a direct of 0.9, AST is 276, ALT is 377, alkaline phosphatase is 232, total pr otein 7.4, albumin 3.9, lipase 68. Previous labs on October 21, 2016, showed a total bilirubin of 0.6, with a conjugated of 0.3, AST was 54, ALT was 49, alkaline phosphatase was 72, GGT was elevated at 81. IMAGING: Includes an abdominal MRI which documents mild intrahepatic biliary ductal dilatation, but a dilated extrahepatic common bile duct to 13 mm which extends down to the level of the previous darnell rgical anastomosis. He has a standard Haja-en-Y post Whipple anatomy without any bowel distention o r evidence of obstruction. No intra-abdominal fluid. No evidence of abscess. The pancreatic body and neck are atrophic. There is no overt pancreatic ductal dilatation. No lymphadenopathy. Abdomen and pelvis CT on October 21, 2016, shows clear lung bases. The cardiac chambers are normal. P ericardium is unremarkable. The liver is normal in size. The gallbladder is absent. There are pos toperative changes of Whipple procedure, with surgical clips at the level of the pancreatic head. T here is atrophy of the body and tail, indistinct haziness in the pre-portacaval fat space above the SMA. There is prominence of the common bile duct at 14 mm in the periportal region that tapers dist ally. IMPRESSION: 1. Epigastric and right upper quadrant pain that sounds biliary in nature to me. 2. Fever. 3. Abnormal transaminases with early cholestasis consistent with obstruction. 4. Abnormal MRCP demonstrating extrahepatic common bile duct obstruction to the level of the surgic al anastomosis with the biliary limb. 5. A well-differentiated neuroendocrine tumor, status post resection. 6. History of a remote gastroduodenal artery bleed. RECOMMENDATIONS: 1. The principal maneuver, I believe, that would be most helpful would be an ERCP to better delinea te the cause of pain, fever, and dilated biliary anatomy with elevations in liver tests, which seem new. .. 2. The performance of an ERCP can be complicated in patients with Haja-en-Y post Whipple anatomy, a nd I believe he would be best served at the [facility] for attempts at endoscopic evaluatio n. 3. If his endoscopic attempts at evaluating the biliary tree are unsuccessful, percutaneous evaluat ion could also be an approach, but I would hope that this could be better triaged and thought about in consultation with his neuroendocrine surgical team. 4. I have spoken with the patient in detail with Dr. Robby Kaur, as well as our local GI bilia ry specialist team and the consensus was made that Mr. Liang would be best served by transfer to the [facility] for further evaluation and management of what I believe to be biliary obstructio n. 5. The cause of obstruction may be ischemic in nature, given his previous GDA embolization or I bernabe ss could be related to scarring or narrowing at the [id number] anastomosis. Stone disease i s also not excluded, although I think less likely. 6. Ertapenem has been given and should cover him for antibiotic therapy until his transfer. 7. He may have clear liquids for now. 8. I have discussed this in detail with his and the patient who are agreeable for transfer. 9. Further recommendations to follow his care as it unfolds at the [facility], which I will help co ordinate. /[id number]/MODL
[2016-11-20] MEDS ORDERED: ENOXAPARIN 40 MG/0.4 ML SYR SC SCH (09:00)
[2016-11-20] MEDS ORDERED: ERTAPENEM 1 GM in NS 100 ML IV SCH (09:00)
[2016-11-20] MEDS ORDERED: ASPIRIN EC 81 MG TAB PO SCH (09:00)
== END 2016-11-19 19:50 | disposition short-term general hospital (02) | DRG 444 ==
LOC: F3E 10:29
PROVIDERS: ADMIT Internal Medicine; ATTEND Internal Medicine
DX: K83.0 Cholangitis (principal); K83.1 Obstruction of bile duct; E11.9 Type 2 diabetes mellitus without complications; I10 Essential (primary) hypertension; E78.5 Hyperlipidemia, unspecified; Z85.07 Personal history of malignant neoplasm of pancreas; Z79.84 Long term (current) use of oral hypoglycemic drugs; Z90.411 Acquired partial absence of pancreas; Z90.49 Acquired absence of other specified parts of digestive tract
CPT/HCPCS: 96365; J1170; J1335; J2405